=== PATIENT | male | born 1955 | race Caucasian/White ===

== ENCOUNTER → 2017-12-24 16:05 | Outpatient (CLI) | payer OTHER, SELFPAY ==
--- NOTE | 2017-12-24 | DI.MRI.S_ITS ---
PROCEDURE: MR THORACIC SPINE WO/W CON INDICATIONS: MULTIPLE SCLEROSIS/LAB/NEUROGENIC BLADDER TECHNIQUE: Noncontrast sagittal T1 spin echo and T2 fast spin echo, sagittal STIR, axial T1 and T2 fast spin echo through the thoracic spine. After the administration of contrast, axial and sagittal T1 spin echo with fat saturation through the thoracic spine. COMPARISON: [facility], CT, ABDOMEN/PELVIS WITH CONTRAST, 12/14/2014, 8:12. FINDINGS: Image quality: Excellent. Alignment and curvature: There is normal bony alignment. Marrow: Marrow is of normal overall signal. No acute vertebral body compression fractures. Mild anterior wedge deformity of L1 is noted, unchanged from . Spinal cord: Visualized spinal cord is of normal signal and size, without abnormal enhancement. Paraspinous soft tissues: No paravertebral masses or abnormal enhancement. Miscellaneous: There is mild degenerative disc disease with mild disc desiccation and mild posterior disc bulge at T7-T8, T8-T9, T9-T10, T10-T11, T11-T12 and L1-L2. Mild central canal stenosis at T11-T12. No foramina appear widely patent at all scanned levels. There is a large cyst in the left kidney measuring 5.8 cm. IMPRESSION: 1. No MS lesions in the thoracic cord. 2. Mild degenerative disc disease causing mild central canal stenosis at T11-T12. 3. Mild anterior wedge deformity of L1 unchanged from 12/14/2014. 4. Large left renal cyst. Dictated by: Branden Burton M.D. on 12/28/2017 at 7:55 Transcribed by: GUILLERMO on 12/28/2017 at 7:56 Approved by: Branden Burton M.D. on 12/28/2017 at 12:52
--- NOTE | 2017-12-24 | DI.RAD.S_ITS ---
PROCEDURE: XR ABDOMEN 1V INDICATIONS: MULTIPLE SCLEROSIS/LAB/NEUROGENIC BLADDER TECHNIQUE: One view of the abdomen acquired. COMPARISON: [facility], CT, ABDOMEN/PELVIS WITH CONTRAST, 12/14/2014, 8:12. FINDINGS: Surgical changes and devices: None. Bowel: Bowel gas pattern is abnormal with generalized colonic obstipation. Soft tissues: No suspicious abdominal calcifications. Visualized solid organ contours appear normal in size. Bones: No suspicious bony lesions. IMPRESSION: Generalized colonic obstipation, no acute disease. Dictated by: Ji Sarabia M.D. on 12/24/2017 at 18:31 Approved by: Ji Sarabia M.D. on 12/24/2017 at 18:31
--- NOTE | 2017-12-24 | DI.MRI.S_ITS ---
PROCEDURE: MR HEAD/BRAIN WO/W CON INDICATIONS: MULTIPLE SCLEROSIS/LAB/NEUROGENIC BLADDER TECHNIQUE: Noncontrast axial T1 spin echo, axial T2 fast spin echo, sagittal and axial FLAIR, coronal T2 fast spin echo, axial gradient echo, axial diffusion and ADC through the brain. After the administration of contrast, axial and coronal T1 spin echo with fat saturation through the brain. COMPARISON: [facility], RG, MRI BRAIN (IAC), 01/31/2004, 11:07. [facility], MR, BRAIN W&WO CONTRAST, 08/16/2015, 12:58. FINDINGS: Image quality: Excellent. CSF spaces: Basal cisterns are patent. No extra-axial fluid collections. Ventricles are normal in size and shape. Brain: There are multiple white matter lesions bilaterally in the periventricular white matter, unchanged. On contrast enhanced images, there is no enhancing lesions identified. Compared to the last exam dated 08/16/2015, there is no significant change. No mass effect or midline shift. No intracranial bleeds or masses. No abnormal intracranial enhancement. There is mild cerebral volume loss for age. The brainstem appears normal. Diffusion-weighted images demonstrate no acute ischemic insults. No chronic ischemic insults. Normal intravascular flow voids are present. Skull and face: Calvarial marrow is normal in signal. Orbits appear normal. Sinuses: There is an air-fluid level in the right maxillary sinus. Mastoids appear clear. IMPRESSION: 1. Stable white matter lesions. 2. Mild cerebral volume loss. 3. Right maxillary sinusitis. Dictated by: Branden Burton M.D. on 12/28/2017 at 7:44 Transcribed by: GUILLERMO on 12/28/2017 at 7:46 Approved by: Branden Burton M.D. on 12/28/2017 at 12:45
--- NOTE | 2017-12-24 | DI.MRI.S_ITS ---
PROCEDURE: MR CERVICAL SPINE WO/W CON INDICATIONS: MULTIPLE SCLEROSIS/LAB/NEUROGENIC BLADDER TECHNIQUE: Noncontrast sagittal T1 spin echo and T2 fast spin echo, sagittal STIR, sagittal PD fast spin echo, foraminal oblique sagittal T2 fast spin echo, axial gradient echo or T2 fast spin echo through the cervical spine. After the administration of contrast, sagittal and axial T1 spin echo with fat saturation through the cervical spine. COMPARISON: [facility], MR, MR HEAD/BRAIN WO/W CON, 12/24/2017, 16:35. [facility], MR, C-SPINE W&WO CONTRAST, 08/16/2015, 13:20. FINDINGS: Image quality: Excellent. Alignment and curvature: There is normal bony alignment. Marrow: There is an intraosseous hemangioma in T2 vertebral body. Marrow signal is otherwise normal. Spinal cord: Visualized spinal cord is normal in size. There are multiple foci of T2 hyperintensity in the cervical cord at level of craniocervical junction, C2, C3 and C5, consistent with white matter plaques. Compared to the last exam on 08/16/2015, white matter lesions are stable in size and number. No suspicious intramedullary enhancement. No cerebellar tonsillar herniation. Paraspinous soft tissues: No paravertebral masses or suspicious enhancement. C2-C3: Preserved disc height and mild disc desiccation. There is minimal posterior disc bulge. Uncovertebral hypertrophy. Mild bilateral facet arthropathy. The central canal is patent. Mild bilateral foraminal stenosis, unchanged. C3-C4: Minimal loss disc height and mild disc desiccation. There is mild posterior disc bulge. Uncovertebral hypertrophy. Mild bilateral facet arthropathy. The central canal is patent. No bilateral foraminal stenosis. C4-C5: Preserved disc height and mild disc desiccation. There is mild posterior disc bulge. Mild bilateral facet arthropathy. No central canal or foraminal stenosis. C5-C6: Mild to moderate loss of disc height and disc desiccation. There is posterior and right posterior lateral disc bulge. Severe right and moderate left facet arthropathy. Mild to moderate central canal stenosis. Mild to moderate lateral foraminal stenosis. No significant change from last exam. C6-C7: Mild to moderate loss of disc height and disc desiccation. There is broad posterior disc bulge and disc osteophyte complex. Mild uncovertebral hypertrophy. Mild central canal stenosis. Moderate right and mild left foraminal stenosis. No significant change from last exam. C7-T1: Normal appearance. IMPRESSION: 1. Stable white matter lesions in the cervical cord. 2. Multilevel degenerative disc disease and facet arthropathy as described. 3. Mild to moderate central canal stenosis at C5-C6. 4. Multilevel foraminal stenoses as described. Dictated by: Branden Burton M.D. on 12/28/2017 at 7:46 Approved by: Branden Burton M.D. on 12/28/2017 at 12:58
[2017-12-24 18:54] LABS: Vitamin D 25 Hydroxy (D3) 65.3 ng/mL (30.0-100.0)
== END ==
PROVIDERS: Family Provider Family Medicine; PCP Family Medicine; Visit Provider Psychiatry & Neurology Neurology
DX: G35 Multiple sclerosis (principal); N31.9 Neuromuscular dysfunction of bladder, unspecified; J32.0 Chronic maxillary sinusitis; M51.34 Other intervertebral disc degeneration, thoracic region; M48.04 Spinal stenosis, thoracic region; N28.1 Cyst of kidney, acquired; M50.30 Other cervical disc degeneration, unspecified cervical region; M47.812 Spondylosis without myelopathy or radiculopathy, cervical region; M48.02 Spinal stenosis, cervical region; M99.71 Connective tissue and disc stenosis of intervertebral foramina of cervical region; K59.00 Constipation, unspecified
CPT/HCPCS: 36415; 70553; 72156; 72157; 74018; 82306; A9579

== ENCOUNTER → 2020-10-15 10:13 | Outpatient (CLI) | payer MEDICARE, SELFPAY ==
[2020-10-15 10:32] LABS: Hematocrit 46.3 % (41-53); Hemoglobin 15.7 g/dL (13.5-17.5); Mean Corpuscular HGB Conc 33.9 % (30-36); Mean Corpuscular Hemoglobin 30.3 PG (26-34); Mean Corpuscular Volume 89.3 fL (80-100); Platelet Count 189 X10^3/uL (150-400); Red Blood Cell Count 5.19 X10^6/uL (4.5-5.9); Red Cell Distribution Width 13.4 % (11.6-14.8)
[2020-10-15 11:00] LABS: Alanine Aminotransferase 16 IU/L (<50); Albumin 4.2 g/dL (3.5-5.0); Albumin Globulin Ratio 1.4 (1.0-2.8); Alkaline Phosphatase 122 U/L (38-126); Aspartate Aminotransferase 21 IU/L (17-59); BUN Creatinine Ratio 33.3 (6-22); Bilirubin Total 0.5 mg/dL (0.2-1.3); Blood Urea Nitrogen 20 mg/dL (9-20); Carbon Dioxide 34 mmol/L (22-32); Chloride 105 mmol/L (98-107); Cholesterol 177 mg/dL (140-199); Estimated Glomerular Filt Rate > 60.0 mL/min (>60); Globulin 3.1 g/dL (1.7-4.1); Glucose 107 mg/dL (80-110); HDL Cholesterol 55 mg/dL (40-60); HEMOLYSIS < 15 (0-50); LDL Cholesterol Calculated 109 mg/dL (<100); Potassium 4.1 mmol/L (3.4-5.1); Sodium 142 mmol/L (137-145); Total Protein 7.3 g/dL (6.3-8.2); Triglycerides 63 mg/dL (35-150)
[2020-10-15 11:27] LABS: Prostate Specific Antigen Scrn 0.919 ng/mL (0.1-4.0)
== END ==
PROVIDERS: Family Provider Family Medicine; PCP Nurse Practitioner; Referring Provider Nurse Practitioner; Visit Provider Nurse Practitioner
DX: Z00.00 Encounter for general adult medical examination without abnormal findings (principal); Z12.5 Encounter for screening for malignant neoplasm of prostate
CPT/HCPCS: 36415; 80053; 80061; 84443; 85027; G0103

== ENCOUNTER → 2020-11-05 15:49 | Outpatient (CLI) | payer MEDICARE, SELFPAY ==
--- NOTE | 2020-11-05 15:51 | DI.US.S_ITS ---
PROCEDURE: US PERIPH VENOUS LOW EXTREM LT INDICATIONS: Lt LE discoloration and delayed capillary refill TECHNIQUE: Real-time imaging, as well as color and pulse Doppler interrogation, were performed of the lower extremity deep veins from the inguinal ligament to the popliteal fossa. COMPARISON: None. FINDINGS: The common femoral, femoral and popliteal veins are normally compressible, and free of intraluminal thrombus. Color and pulse Doppler demonstrate normal phasic intraluminal flow. There is normal augmentation response to distal compression maneuver. IMPRESSION: Negative for deep venous thrombosis. Dictated by: Sean Bryan M.D. on 11/05/2020 at 15:24 Approved by: Sean Bryan M.D. on 11/05/2020 at 15:24
== END ==
PROVIDERS: Family Provider Family Medicine; PCP Nurse Practitioner; Referring Provider Nurse Practitioner; Visit Provider Nurse Practitioner
DX: L81.9 Disorder of pigmentation, unspecified (principal)
CPT/HCPCS: 93971

== ENCOUNTER → 2020-11-15 09:49 | Outpatient (CLI) | payer MEDICARE, SELFPAY ==
[2020-11-15 11:11] LABS: COVID19 -Nasal RAPID Negative (Negative)
== END ==
PROVIDERS: Family Provider Family Medicine; PCP Nurse Practitioner; Visit Provider Surgery
DX: Z20.822 Contact with and (suspected) exposure to COVID-19 (principal)
CPT/HCPCS: 87635; C9803

== ENCOUNTER 2020-11-18 08:58 | Day surgery (SDC) | payer MEDICARE, SELFPAY ==
[2020-11-18] MEDS: FLEETS ENEMA 1 EACH PR (09:20)
[2020-11-18] MEDS: LACTATED RINGERS 1,000 ML 200 ML IV (09:40)
[2020-11-18 09:41] VITALS: BP 137/86; PULSE 105; RESP 16; TEMP 36.8; O2SAT 100; BMI 18.8
--- NOTE | 2020-11-18 10:02 | PM.HP.1 ---
History of Present Illness History of Present Illness Date Patient Seen: 11/18/20 Time Patient Seen: 10:03 Chief complaint: SCREENING COLONOSCOPY Narrative: The patient presents for colorectal sreening. He had previously normal colonoscopy greater than 10 years ago. He has a family history of colon cancer of his mother. On further history denies any recent gastrointestinal symptoms. No nausea, vomiting, abdominal pain, loss of appetite, unexplained weight loss, change in bowel habits, diarrhea, constipation, melena, hematochezia, or bright red blood per rectum. Patient History Medical History Forehead laceration Hyperlipidemia LDL goal <100 Multiple sclerosis (11/11/11) Surgical History Status post hernia repair Family & Social History Family History Mother Dementia Alzheimer's disease Social History: household members spouse Tobacco & Substance use: Smoking Status Never smoker alcohol intake never Substance Use Type does not use Meds Home Medications and Allergies Home Medications Medication Instructions Recorded Confirmed Type [MANUAL WHEELCHAIR] #0 10/15/16 02/15/20 Rx Disabled Parking Permit ea #1 01/04/17 02/15/20 Rx multivitamin [Multiple Vitamins] 1 tab PO QDAY #0 11/23/17 11/18/20 History calcium carb-vit D3-minerals 600 1 tab PO BID #1 tab 10/10/20 11/18/20 Rx mg calcium-400 unit tablet ascorbic acid (vitamin C) 1,000 mg 1 g PO DAILY tab 11/05/20 11/18/20 History tablet butenafine 1 % topical cream 1 applic TOPICAL BID #30 g 11/05/20 11/18/20 Rx cholecalciferol (vitamin D3) 50 50 mcg PO DAILY 11/05/20 11/18/20 History mcg (2,000 unit) capsule Allergies Allergy/AdvReac Type Severity Reaction Status Date / Time Sulfa (Sulfonamide Allergy Intermediate HIVES Verified 11/18/20 09:34 Antibiotics) [SULFA (SULFONAMIDE ANTIBIOTICS)] peanut [PEANUT] AdvReac Mild NAUSEA Verified 11/18/20 09:34 Review of Systems Review of Systems ROS: Yes All systems reviewed with the patient and are negative except as otherwise documented Exam Vital Signs (past 8 hours): - 11/18/20 09:41 Temperature 98.2 F Pulse Rate 105 H Respiratory Rate 16 Blood Pressure 137/86 Pulse Oximetry 100 Oxygen Delivery Method Room Air Narrative Exam Narrative: GENERAL-well developed adult male, no acute distress HEENT-no scleral icterus, hearing intact NECK-no JVD, trachea midline CVS- regular rate, no peripheral edema RESP-unlabored respiratory effort, no audible wheezing GI-soft, nontender nondistended MSK-no cyanosis or clubbing, extremities without deformity SKIN-warm, dry NEURO-alert and oriented, no focal deficits PYSCH-Appropriate mood and affect Assessment & Plan Assessment & Plan narrative: The patient requires colorectal screening and colonoscopy is recommended. Technical details were discussed. Risks, benefits, alternatives explained. Risks including but not limited to myocardial infarction, aspiration, bleeding, pain, missed lesion, incomplete examination, need for further radiographic studies, colonic perforation, and need for major abdominal surgery were discussed. All questions were answered to their satisfaction, and they are in agreement with this plan.
[2020-11-18] MEDS: fentaNYL 250 MCG/5 ML INJ IV (10:11)
[2020-11-18] MEDS: MIDAZOLAM 5 MG/5 ML VIAL IV (10:12)
--- NOTE | 2020-11-18 10:40 | PM.OP.ENDO ---
Operative Date/Time/Diagnoses Date of procedure: 11/18/20 Time of procedure: 10:40 Pre-op diagnosis: family history of colon cancer Post-op diagnosis: same Procedure & Clinicians Study performed: Colonoscopy Same procedure as scheduled: Yes Indications: Family history of colon cancer Surgeon: Alex Dexter Procedure Notes Procedure in detail: Medications: Conscious sedation using 3mg IV midazolam and 100mcg IV of fentanyl The history and physical was performed/updated and the patient is ASA class is 3. The procedure was discussed in detail with the patient. Potential risks complications including infection, bleeding, missed diagnosis, perforation, need for surgery, and were explained. Their questions were answered and informed consent was obtained. Patient was brought to the procedure room and placed standard monitoring equipment. The patient's vital signs were monitored continuously throughout the entire procedure. Prior to starting time-out was performed. The patient was placed in the left lateral recumbent position. Procedural sedation was administered. Examination began with a thorough inspection of the perianal area there was no evidence of fissures, fistulae, external hemorrhoids or cutaneous malignancy. The colonoscopy scope was then placed into the anal canal and was advanced to the cecum, which was identified by the ileocecal valve, the appendiceal orifice and the confluence of the taenia. The scope was then slowly withdrawn examining colon thoroughly in all directions, irrigating it of any residual stool. No masses or polyps Sigmoid diverticulosis The patient tolerated the procedure well. They will be discharged once criteria are met. The prep was of good/excellent quality. The withdrawl time was 7 minutes. The sedation time was 22 minutes. Specimen(s): none sent Complications: none Impression: Normal colonoscopy Post-procedure Recommendations: Colonscopy in 5 years Disposition: same day surgery
[2020-11-18 10:43] VITALS: BP 134/87; PULSE 80; RESP 12; TEMP 36.8; O2SAT 91
[2020-11-18 10:47] VITALS: BP 143/90; PULSE 75; RESP 12; TEMP 36.6; O2SAT 100
[2020-11-18 11:18] VITALS: BP 136/89; PULSE 77; RESP 16; TEMP 36.6; O2SAT 99
--- NOTE | 2020-11-18 11:21 | SUR.PHASEII ---
Belly soft, denied pain wanting to go home, called, assisted pt to dress, pt left in stable condition.
== END 2020-11-18 11:23 | disposition home or self-care (01) ==
PROVIDERS: Family Provider Family Medicine; PCP Nurse Practitioner; Referring Provider Surgery; Visit Provider Surgery
PROC: 0DJD8ZZ Inspection of Lower Intestinal Tract, Via Natural or Artificial Opening Endoscopic (ICD-10-PCS; CPT 45378; principal; 2020-11-18 10:00)
DX: Z12.11 Encounter for screening for malignant neoplasm of colon (principal); Z80.0 Family history of malignant neoplasm of digestive organs; K57.30 Diverticulosis of large intestine without perforation or abscess without bleeding
CPT/HCPCS: G0105; 99152; J2250; J3010

== ENCOUNTER → 2020-12-03 12:39 | Outpatient (CLI) | payer MEDICARE, SELFPAY ==
[2020-12-03 13:29] LABS: Add Manual Diff / Slide Review NO; Basophils Absolute Auto 100 /uL (0-100); Basophils Percent Auto 0.9 % (0-2); Eosinophils Absolute Auto 100 /uL (0-450); Eosinophils Percent Auto 1.4 % (2-4); Hematocrit 46.3 % (41-53); Hemoglobin 15.7 g/dL (13.5-17.5); Lymphocytes Absolute Auto 1700 /uL (1100-4500); Lymphocytes Percent Auto 23.9 % (25-40); Mean Corpuscular Hemoglobin 30.2 PG (26-34); Mean Corpuscular Volume 88.7 fL (80-100); Monocytes Absolute Auto 600 /uL (0-900); Monocytes Percent Auto 7.7 % (3-14); Neutrophils Absolute Auto 4800 /uL (1500-7000); Neutrophils Percent Auto 66.1 % (50-75); Platelet Count 221 X10^3/uL (150-400); Red Blood Cell Count 5.22 X10^6/uL (4.5-5.9); Red Cell Distribution Width 13.4 % (11.6-14.8); White Blood Cell Count 7.3 X10^3/uL (4.5-11.0)
[2020-12-03 13:43] LABS: Alanine Aminotransferase 15 IU/L (<50); Albumin 4.1 g/dL (3.5-5.0); Albumin Globulin Ratio 1.4 (1.0-2.8); Alkaline Phosphatase 106 U/L (38-126); Aspartate Aminotransferase 21 IU/L (17-59); BUN Creatinine Ratio 20.3 (6-22); Bilirubin Total 0.5 mg/dL (0.2-1.3); Blood Urea Nitrogen 12 mg/dL (9-20); Calcium 9.4 mg/dL (8.4-10.2); Carbon Dioxide 30 mmol/L (22-32); Chloride 101 mmol/L (98-107); Estimated Glomerular Filt Rate > 60.0 mL/min (>60); Globulin 2.9 g/dL (1.7-4.1); Glucose 85 mg/dL (80-110); HEMOLYSIS < 15 (0-50); Potassium 4.9 mmol/L (3.4-5.1); Sodium 137 mmol/L (137-145)
== END ==
PROVIDERS: Family Provider Family Medicine; PCP Nurse Practitioner; Referring Provider Physician Assistant; Visit Provider Physician Assistant
DX: B35.1 Tinea unguium (principal)
CPT/HCPCS: 36415; 80053; 85025

== ENCOUNTER → 2021-01-08 15:48 | Outpatient (CLI) | payer MEDICARE, SELFPAY ==
[2021-01-08 16:52] LABS: Add Manual Diff / Slide Review NO; Basophils Absolute Auto 0 /uL (0-100); Basophils Percent Auto 0.7 % (0-2); Eosinophils Absolute Auto 200 /uL (0-450); Eosinophils Percent Auto 2.2 % (2-4); Hematocrit 45.5 % (41-53); Hemoglobin 15.6 g/dL (13.5-17.5); Lymphocytes Absolute Auto 2000 /uL (1100-4500); Lymphocytes Percent Auto 28.9 % (25-40); Mean Corpuscular HGB Conc 34.3 % (30-36); Mean Corpuscular Hemoglobin 30.5 PG (26-34); Monocytes Absolute Auto 600 /uL (0-900); Monocytes Percent Auto 8.3 % (3-14); Neutrophils Absolute Auto 4100 /uL (1500-7000); Neutrophils Percent Auto 59.9 % (50-75); Platelet Count 199 X10^3/uL (150-400); Red Blood Cell Count 5.11 X10^6/uL (4.5-5.9); Red Cell Distribution Width 13.3 % (11.6-14.8); White Blood Cell Count 6.9 X10^3/uL (4.5-11.0)
[2021-01-08 17:07] LABS: Alanine Aminotransferase 17 IU/L (<50); Albumin 3.9 g/dL (3.5-5.0); Albumin Globulin Ratio 1.3 (1.0-2.8); Alkaline Phosphatase 120 U/L (38-126); Aspartate Aminotransferase 22 IU/L (17-59); BUN Creatinine Ratio 23.6 (6-22); Bilirubin Total 0.3 mg/dL (0.2-1.3); Blood Urea Nitrogen 13 mg/dL (9-20); Calcium 9.4 mg/dL (8.4-10.2); Carbon Dioxide 31 mmol/L (22-32); Chloride 102 mmol/L (98-107); Estimated Glomerular Filt Rate > 60.0 mL/min (>60); Globulin 3.1 g/dL (1.7-4.1); Glucose 86 mg/dL (80-110); HEMOLYSIS < 15 (0-50); Potassium 3.9 mmol/L (3.4-5.1); Sodium 138 mmol/L (137-145)
== END ==
PROVIDERS: Family Provider Family Medicine; PCP Nurse Practitioner; Referring Provider Physician Assistant; Visit Provider Physician Assistant
DX: B35.1 Tinea unguium (principal)
CPT/HCPCS: 36415; 80053; 85025

== ENCOUNTER → 2021-02-13 08:26 | Outpatient (CLI) | payer MEDICARE, SELFPAY ==
[2021-02-13 09:44] LABS: Add Manual Diff / Slide Review NO; Basophils Absolute Auto 0 /uL (0-100); Basophils Percent Auto 0.7 % (0-2); Eosinophils Absolute Auto 100 /uL (0-450); Eosinophils Percent Auto 1.7 % (2-4); Hematocrit 46.3 % (41-53); Hemoglobin 15.6 g/dL (13.5-17.5); Lymphocytes Absolute Auto 1500 /uL (1100-4500); Lymphocytes Percent Auto 23.8 % (25-40); Mean Corpuscular HGB Conc 33.6 % (30-36); Mean Corpuscular Hemoglobin 30.1 PG (26-34); Mean Corpuscular Volume 89.5 fL (80-100); Monocytes Absolute Auto 400 /uL (0-900); Monocytes Percent Auto 7.2 % (3-14); Neutrophils Absolute Auto 4100 /uL (1500-7000); Neutrophils Percent Auto 66.6 % (50-75); Platelet Count 213 X10^3/uL (150-400); Red Blood Cell Count 5.17 X10^6/uL (4.5-5.9); Red Cell Distribution Width 13.5 % (11.6-14.8); White Blood Cell Count 6.2 X10^3/uL (4.5-11.0)
[2021-02-13 09:52] LABS: Alanine Aminotransferase 16 IU/L (<50); Albumin Globulin Ratio 1.3 (1.0-2.8); Alkaline Phosphatase 99 U/L (38-126); Aspartate Aminotransferase 22 IU/L (17-59); BUN Creatinine Ratio 30.2 (6-22); Bilirubin Total 0.5 mg/dL (0.2-1.3); Blood Urea Nitrogen 19 mg/dL (9-20); Calcium 9.1 mg/dL (8.4-10.2); Carbon Dioxide 32 mmol/L (22-32); Chloride 103 mmol/L (98-107); Cholesterol 164 mg/dL (140-199); Estimated Glomerular Filt Rate > 60.0 mL/min (>60); Glucose 96 mg/dL (80-110); HDL Cholesterol 54 mg/dL (40-60); HEMOLYSIS < 15 (0-50); LDL Cholesterol Calculated 99 mg/dL (<100); Potassium 3.8 mmol/L (3.4-5.1); Sodium 139 mmol/L (137-145); Triglycerides 54 mg/dL (35-150)
== END ==
PROVIDERS: Family Provider Family Medicine; PCP Nurse Practitioner; Referring Provider Nurse Practitioner; Visit Provider Nurse Practitioner
DX: B35.1 Tinea unguium (principal); E78.5 Hyperlipidemia, unspecified
CPT/HCPCS: 36415; 80053; 80061; 85025

== ENCOUNTER → 2022-06-08 10:44 | Outpatient (CLI) | payer MEDICARE, SELFPAY ==
[2022-06-08 11:25] LABS: Appearance Urine UA CLEAR; Bilirubin Urine UA NEGATIVE (NEGATIVE); Color Urine UA YELLOW; Glucose Urine UA NEGATIVE (Negative); Ketones Urine UA NEGATIVE (NEGATIVE); Leukocyte Esterase Urine UA TRACE (NEGATIVE); Nitrite Urine UA POSITIVE (Negative); Occult Blood Urine UA TRACE-INTACT (Negative); Protein Urine UA NEGATIVE (Negative); Urobilinogen Urine UA 0.2 E.U./dL (0.2)
[2022-06-08 11:56] LABS: Bacteria Urine Many (>30); Culture Indicated Urine Specimen Cultured; RBC Urine None Seen (0-5/HPF); WBC Urine 1-5/HPF (0-5/HPF)
[2022-06-08 13:23] LABS: Prostate Specific Antigen Scrn 0.875 ng/mL (0.1-4.0)
== END ==
PROVIDERS: Family Provider Family Medicine; PCP Nurse Practitioner; Referring Provider Nurse Practitioner; Visit Provider Nurse Practitioner
DX: Z12.5 Encounter for screening for malignant neoplasm of prostate (principal); N31.9 Neuromuscular dysfunction of bladder, unspecified; N39.0 Urinary tract infection, site not specified
CPT/HCPCS: 36415; 81001; 87077; 87086; 87186; G0103

== ENCOUNTER → 2022-07-10 12:38 | Outpatient (CLI) | payer MEDICARE, SELFPAY ==
--- NOTE | 2022-07-10 12:39 | DI.US.S_ITS ---
PROCEDURE: US ABD AORTA ANEURYSM SCREEN INDICATIONS: Preventative purposes TECHNIQUE: Real time scanning was performed of the aorta and iliac arteries, with image documentation. COMPARISON: None. FINDINGS: Aorta: Proximal aortic diameter measures 2.6 cm. Mid-aorta measures 1.9 cm. Distal aortic diameter is 1.9 cm. Iliac arteries: Right common iliac artery measures 1.2 cm. Left common iliac artery measures 1.1 cm. IMPRESSION: No abdominal aortic aneurysm. Approved by: Alexi Koo M.D. on 07/10/2022 at 14:50
== END ==
PROVIDERS: Family Provider Family Medicine; PCP Nurse Practitioner; Referring Provider Nurse Practitioner; Visit Provider Nurse Practitioner
DX: I71.40 Abdominal aortic aneurysm, without rupture, unspecified (principal)
CPT/HCPCS: 76706

== ENCOUNTER → 2022-08-24 17:11 | Outpatient (CLI) | payer MEDICARE, SELFPAY ==
--- NOTE | 2022-08-24 17:15 | DI.US.S_ITS ---
PROCEDURE: US RENAL COMPLETE INDICATIONS: NEUROGENIC BLADDER TECHNIQUE: Real-time scanning was performed of the kidneys and bladder, with image documentation. COMPARISON: [facility], CT, ABDOMEN/PELVIS WITH CONTRAST, 12/14/2014, 8:12. [facility], US, RENAL COMPLETE, 04/10/2010, 8:38. [facility], US, RENAL COMPLETE, 10/09/2011, 16:26. [facility], US, RENAL COMPLETE, 11/05/2017, 13:27. FINDINGS: Kidneys: Right kidney measures 9.7 cm long; left kidney measures 7.8 cm long. Right renal cortical thickness is 0.6 cm; left renal cortical thickness is 0.7 cm. Renal cortical echotexture is normal. No hydronephrosis or nephrolithiasis. No suspicious solid mass lesions. There is a prominent left renal cyst seen that measures up to 6.4 cm. Bladder: Pre-void bladder volume is 330 mL. There is no definite postvoid residual. Pre-void images demonstrate no intraluminal masses or stones. On pre-void images, both ureteral jets are noted with color Doppler interrogation. (Of note, ureteral jets may not be detectable in up to 25% of cases due to insufficient differences in specific gravity between ureteral and bladder urine). Miscellaneous: No free pelvic fluid. IMPRESSION: No definite postvoid residual. Large simple appearing left renal cyst seen measuring up to 6.4 cm. Small kidney size. No hydronephrosis. Dictated by: Sean Bryan M.D. on 08/25/2022 at 10:50 Approved by: Sean Bryan M.D. on 08/25/2022 at 10:53
== END ==
PROVIDERS: Family Provider Family Medicine; PCP Nurse Practitioner; Referring Provider Urology; Visit Provider Urology
DX: N31.9 Neuromuscular dysfunction of bladder, unspecified (principal); R33.9 Retention of urine, unspecified; N28.1 Cyst of kidney, acquired; N27.9 Small kidney, unspecified; Z87.440 Personal history of urinary (tract) infections
CPT/HCPCS: 76770

== ENCOUNTER 2023-02-09 16:26 | Emergency (ER) | payer MEDICARE, SELFPAY ==
[2023-02-09 16:30] VITALS: BP 124/74; PULSE 90; RESP 16; TEMP 36.9; O2SAT 99; BMI 18.1
--- NOTE | 2023-02-09 16:40 | DI.US.S_ITS ---
PROCEDURE: US SCROTUM INDICATIONS: Rt testicle swelling TECHNIQUE: Real-time scanning was performed of the scrotum and testicles, with image documentation. Color and pulse Doppler interrogation was performed of both testicles. COMPARISON: None. FINDINGS: Right: Testicle is normal in size at 3.0 x 3.1 x 2.8 cm, and homogenous in echotexture. Epididymal head cyst measuring up to 12 mm. There is a septated hydrocele. Overlying scrotal skin is normal in thickness. Prominent rete testes. Left: Testicle is normal in size at 3.5 x 2.6 x 2.8 cm, and homogeneous in echotexture. Epididymal head cysts measuring 22 mm and 19 mm. No hydrocele or varicoceles. Overlying scrotal skin is normal in thickness. Prominent rete testes. Doppler: Color and pulse Doppler demonstrate normal and symmetric arterial flow in both testicles. IMPRESSION: 1. Septated right hydrocele. No significant asymmetric flow is seen to the epididymi to suggest epididymitis. 2. Bilateral epididymal head cysts. 3. Bilateral prominent rete testes. Dictated by: Florin Barahona M.D. on 02/09/2023 at 18:18 Approved by: Florin Barahona M.D. on 02/09/2023 at 18:21
[2023-02-09 18:06] VITALS: PULSE 86; RESP 18; O2SAT 98
[2023-02-09 18:22] LABS: Appearance Urine UA CLEAR; Bilirubin Urine UA NEGATIVE (NEGATIVE); Color Urine UA YELLOW; Glucose Urine UA NEGATIVE (Negative); Ketones Urine UA NEGATIVE (NEGATIVE); Leukocyte Esterase Urine UA 1+ (NEGATIVE); Nitrite Urine UA NEGATIVE (Negative); Occult Blood Urine UA NEGATIVE (Negative); Protein Urine UA NEGATIVE (Negative); Specific Gravity Urine UA 1.015 (1.000-1.035); Urobilinogen Urine UA 0.2 E.U./dL (0.2)
[2023-02-09 18:39] LABS: Bacteria Urine Many (>30); Culture Indicated Urine Specimen Cultured; RBC Urine 0-1/HPF (0-5/HPF); Squamous Epithelial Cell Urine 1-5 /HPF (0-5/HPF); WBC Urine 5-10/HPF (0-5/HPF)
--- NOTE | 2023-02-09 18:46 | ED_ITS ---
HPI - General Adult General Chief complaint: Urogenital-Male Stated complaint: rt testicle swollen Time Seen by Provider: 02/09/23 16:40 Source: patient Mode of arrival: Wheelchair Limitations: no limitations History of Present Illness HPI narrative: 67-year-old male. Does have a history of MS. Is wheelchair dependent. Yesterday started to notice a swelling in his right hemiscrotum and it is somewhat worse today. He does self-catheterize. This is not new for him. He is no abdominal tenderness. No skin rashes. No fevers. No known trauma. Related Data Home Medications Medication Instructions Recorded Confirmed multivitamin (Multiple Vitamins 1 tab PO QDAY ##0 11/23/17 09/02/22 tablet) ascorbic acid (vitamin C) 1,000 mg 1 g PO DAILY 11/05/20 09/02/22 tablet cholecalciferol (vitamin D3) 25 25 mcg PO DAILY 06/08/22 09/02/22 mcg (1,000 unit) capsule econazole 1 % topical cream 1 applic topical DAILY 06/08/22 09/02/22 vit 1 cap PO BID 06/08/22 09/02/22 C,E,zinc,Im-pxbvv-6-lutein-zeaxanthin 250 mg-2.5 mg-0.5 mg capsule Previous Rx's Medication Instructions Recorded [MANUAL WHEELCHAIR] ##0 10/15/16 calcium carb-vit D3-minerals 600 1 tab PO BID #1 tab 10/10/20 mg calcium-400 unit tablet Wheelchair wheels #1 ea 12/27/20 Disabled Parking Permit #1 ea 05/22/22 Allergies Allergy/AdvReac Type Severity Reaction Status Date / Time Sulfa (Sulfonamide Allergy Intermediate HIVES Verified 09/02/22 08:24 Antibiotics) [SULFA (SULFONAMIDE ANTIBIOTICS)] peanut [PEANUT] AdvReac Mild NAUSEA Verified 09/02/22 08:24 Review of Systems Constitutional Constitutional: Reports system reviewed and no additional complaints, except as documented Genitourinary Genitourinary: Reports system reviewed and no additional complaints, except as documented Musculoskeletal Musculoskeletal: Reports system reviewed and no additional complaints, except as documented Integumentary/Breasts Skin/Breast: Reports system reviewed and no additional complaints, except as documented Patient History Medical History Forehead laceration History of urinary tract infection Hyperlipidemia LDL goal <100 Male circumcision Multiple sclerosis (11/11/11) Renal cyst Urinary retention Wheelchair dependent Surgical History Status post hernia repair Family History Mother Dementia Alzheimer's disease Hearing impairment Father Hypertension Hearing impairment Social History marital status: number of children: 6 household members: spouse Smoking Status: Never smoker alcohol intake: never caffeine: No Type(s) of exercise: none Smoking Status: Never smoker Substance Use Type: does not use Exam Initial Vital Signs Initial Vital Signs: Vital Signs Temperature 98.5 F 02/09/23 16:30 Pulse Rate 90 02/09/23 16:30 Respiratory Rate 16 02/09/23 16:30 Blood Pressure 124/74 02/09/23 16:30 Pulse Oximetry 99 02/09/23 16:30 Oxygen Delivery Method Room Air 02/09/23 16:30 Const General: cooperative and comfortable GI Inspection: normal to inspection and non-distended Other: Bilateral testes are unremarkable. Penis is unremarkable. Glands is unremarkable. Scrotum is unremarkable. Does have a swelling that is tender to palpation in the right hemiscrotum. Skin General: no rashes or lesions noted Course Orders Ordered: ED Orders 02/09/23 16:40 US scrotum Stat Urinalysis and Microscopic Stat Urine Culture Stat Vital Signs Vital signs: Vital Signs - 8 hr 02/09/23 16:30 02/09/23 18:06 02/09/23 18:59 Temperature 98.5 F Pulse Rate 90 86 74 Respiratory Rate 16 18 Blood Pressure 124/74 131/80 Pulse Oximetry 99 98 99 Oxygen Delivery Method Room Air Room Air Room Air Medical Decision Making Lab Data Lab results reviewed: Yes I reviewed the patient's lab results. Labs: Lab Results 02/09/23 Range/Units 16:40 Urine Color Yellow Urine Appearance Clear Urine pH 7.0 (4.5-8.0) Ur Specific Oral 1.015 (1.000-1.035) Urine Protein Negative (Negative) Urine Glucose (UA) Negative (Negative) g/dL Urine Ketones Negative (NEGATIVE) Urine Occult Blood Negative (Negative) Urine Nitrate Negative (Negative) Urine Bilirubin Negative (NEGATIVE) Urine Urobilinogen 0.2 (0.2) E.U./dL Ur Leukocyte Esterase 1+ H (NEGATIVE) Urine RBC 0-1/hpf (0-5/HPF) Urine WBC 5-10/hpf H (0-5/HPF) Ur Squamous Epith Cells 1-5 /hpf (0-5/HPF) Urine Bacteria Many (>30) H (None) Ur Culture Indicated? Specimen cultured Imaging Data Scrotal ultrasound: Radiologist's Impression: PROCEDURE:? US SCROTUM ? INDICATIONS:? Rt testicle swelling ? TECHNIQUE:? Real-time scanning was performed of the scrotum and testicles, with image documentation.? Color and pulse Doppler interrogation was performed of both testicles.? ? COMPARISON:? None. ? FINDINGS:? ? Right:? Testicle is normal in size at 3.0 x 3.1 x 2.8 cm, and homogenous in echotexture.? Epididymal head cyst measuring up to 12 mm. There is a septated hydrocele.? Overlying scrotal skin is normal in thickness.? Prominent rete testes. ? Left:? Testicle is normal in size at 3.5 x 2.6 x 2.8 cm, and homogeneous in ech otexture.? Epididymal head cysts measuring 22 mm and 19 mm. No hydrocele or varicoceles.? Overlying scrotal skin is normal in thickness.? Prominent rete testes. ? Doppler:? Color and pulse Doppler demonstrate normal and symmetric arterial flow in both testicles.? ? IMPRESSION:? 1. Septated right hydrocele.? No significant asymmetric flow is seen to the epididymi to suggest epididymitis. 2. Bilateral epididymal head cysts. 3.? Bilateral prominent rete testes.? MDM Narrative Medical decision making narrative: History and physical exam and ultrasound are consistent with a hydrocele. No indication for emergent urologic consultation. He self caths. He does have bacteria in his urine but we will wait for the urine culture before treating with any antibiotics. Advised that he contact Urology for follow-up. He was given return precautions. He expressed understanding and agreement. Discharge Plan Departure Patient Disposition: Home Clinical Impression: Hydrocele Instructions: DI for Hydrocele-Adult Activity Restrictions/Additional Instructions: I recommend that tomorrow you contact your urologist office to let him know that you do have this hydrocele. Your urinalysis today did have some bacteria in it however we will wait for the culture results before we would treat for any antibiotics. Return to the emergency department for new or worsening symptoms. Prescriptions: No Action [MANUAL WHEELCHAIR] Qty: 0 0RF multivitamin [Multiple Vitamins] 1 EACH tablet 1 tab PO QDAY Qty: 0 (DME) Wheelchair wheels See Rx Instructions .Route .MEDSUPPLY Qty: 1 0RF [place] Instructions: [place] [place] See Rx Instructions .ROUTE .MEDSUPPLY Qty: 1 0RF Rx Instructions: Valid for 5 years ascorbic acid (vitamin C) 1,000 mg tablet 1 g PO DAILY calcium carbonate-vit D3-min 600 mg calcium- 400 unit tablet 1 tab PO BID Qty: 1 0RF econazole 1 % cream 1 applic topical DAILY cholecalciferol (vitamin D3) 25 mcg (1,000 unit) capsule 25 mcg PO DAILY vit C,E,Zn,Sc-xaxyh9-jli-zeax 250-2.5-0.5 mg capsule 1 cap PO BID Referrals: Denise Romero ARNP [Primary Care Provider] - Stand Alone Forms: Patient Portal/API
[2023-02-09 18:59] VITALS: BP 131/80; PULSE 74; O2SAT 99
== END 2023-02-09 18:59 | disposition home or self-care (01) ==
PROVIDERS: Emergency Medicine; Emergency Provider Emergency Medicine; Family Provider Family Medicine; PCP Nurse Practitioner
DX: N43.3 Hydrocele, unspecified (principal)
CPT/HCPCS: 76870; 81001; 87077; 87086; 87147; 87186; 93975; 99282; 99283

== ENCOUNTER 2023-02-16 14:37 | Emergency (ER) | payer MEDICARE, SELFPAY ==
[2023-02-16] VITALS (20 sets, daily range): BP systolic 96–120; BP diastolic 59–72; PULSE 84–153; RESP 14–24; TEMP 36.3–36.6; O2SAT 94–100; BMI 18.1
--- NOTE | 2023-02-16 15:00 | DI.RAD.S_ITS ---
PROCEDURE: XR CHEST 1V INDICATIONS: chest pain TECHNIQUE: One view of the chest was acquired. COMPARISON: [facility], , CHEST 2 VIEW, 12/11/2014, 11:21. FINDINGS: Surgical changes and devices: None. Lungs and pleura: Lungs are clear. No pleural effusions or pneumothorax. Mediastinum: Mediastinal contours appear normal. Heart size is normal. Bones and chest wall: No suspicious bony lesions. Overlying soft tissues appear unremarkable. IMPRESSION: No acute cardiopulmonary pathology. Dictated by: Jovany Pittman M.D. on 02/16/2023 at 15:45 Approved by: Jovany Pittman M.D. on 02/16/2023 at 15:45
[2023-02-16 15:18] LABS: Add Manual Diff / Slide Review NO; Basophils Absolute Auto 100 /uL (0-100); Basophils Percent Auto 0.8 % (0-2); Eosinophils Absolute Auto 100 /uL (0-450); Eosinophils Percent Auto 0.7 % (2-4); Hematocrit 46.5 % (41-53); Hemoglobin 15.9 g/dL (13.5-17.5); Lymphocytes Absolute Auto 2100 /uL (1100-4500); Lymphocytes Percent Auto 21.9 % (25-40); Mean Corpuscular HGB Conc 34.3 % (30-36); Mean Corpuscular Hemoglobin 30.6 PG (26-34); Mean Corpuscular Volume 89.2 fL (80-100); Monocytes Absolute Auto 700 /uL (0-900); Monocytes Percent Auto 7.3 % (3-14); Neutrophils Absolute Auto 6700 /uL (1500-7000); Neutrophils Percent Auto 69.3 % (50-75); Platelet Count 262 X10^3/uL (150-400); Red Blood Cell Count 5.21 X10^6/uL (4.5-5.9); Red Cell Distribution Width 12.8 % (11.6-14.8); White Blood Cell Count 9.7 X10^3/uL (4.5-11.0)
[2023-02-16 15:20] LABS: Prothrombin Time 11.4 SECONDS (10.1-12.7)
[2023-02-16 15:23] LABS: PTT Partial Thromboplastin Tim 28 SECONDS (26-36)
--- NOTE | 2023-02-16 15:23 | ED_ITS ---
HPI - Arrhythmia/Palpitations General Chief Complaint: Arrhythmia/Palpitations Stated Complaint: AFIB Time Seen by Provider: 02/16/23 15:06 Source: patient and EMS Mode of arrival: EMS History of Present Illness HPI narrative: Patient is a 67-year-old male history of multiple sclerosis presenting today with dizziness. He reports that he was in his normal state of health this morning he was able to walk and exercise in the pool. He is typically wheelchair-bound due to weakness but able to swim. Got home and did not feel quite right. EMS found him with AFib with RVR. He was given 50 mg of diltiazem and pressure dropped into the 70s. Blood pressure has come up with normal saline. He does report feeling some fluttering in his chest but is pretty asymptomatic. He denies having any symptoms yesterday. He has been doing well. Related Data Home Medications Medication Instructions Recorded Confirmed multivitamin (Multiple Vitamins 1 tab PO QDAY ##0 11/23/17 02/15/23 tablet) ascorbic acid (vitamin C) 1,000 mg 1 g PO DAILY 11/05/20 02/15/23 tablet cholecalciferol (vitamin D3) 25 25 mcg PO DAILY 06/08/22 02/15/23 mcg (1,000 unit) capsule econazole 1 % topical cream 1 applic topical DAILY 06/08/22 02/15/23 vit 1 cap PO BID 06/08/22 02/15/23 C,E,zinc,An-lpray-9-lutein-zeaxanthin 250 mg-2.5 mg-0.5 mg capsule nitrofurantoin 100 mg PO BID 02/15/23 02/15/23 monohydrate/macrocrystals 100 mg capsule (Macrobid) Previous Rx's Medication Instructions Recorded [MANUAL WHEELCHAIR] ##0 10/15/16 calcium carb-vit D3-minerals 600 1 tab PO BID #1 tab 10/10/20 mg calcium-400 unit tablet Wheelchair wheels #1 ea 12/27/20 Disabled Parking Permit #1 ea 05/22/22 Allergies Allergy/AdvReac Type Severity Reaction Status Date / Time Sulfa (Sulfonamide Allergy Intermediate HIVES Verified 02/15/23 09:52 Antibiotics) [SULFA (SULFONAMIDE ANTIBIOTICS)] peanut [PEANUT] AdvReac Mild NAUSEA Verified 02/15/23 09:52 Review of Systems Review of Systems ROS Unobtainable: All systems reviewed & are unremarkable except as noted in HPI and below Patient History Medical History Forehead laceration History of urinary tract infection Hyperlipidemia LDL goal <100 Male circumcision Multiple sclerosis (11/11/11) Renal cyst Urinary retention Wheelchair dependent Surgical History Status post hernia repair Family History Mother Dementia Alzheimer's disease Hearing impairment Father Hypertension Hearing impairment Social History marital status: number of children: 6 household members: spouse Smoking Status: Never smoker alcohol intake: never caffeine: No Type(s) of exercise: none Smoking Status: Never smoker Substance Use Type: does not use Exam Initial Vital Signs Initial Vital Signs: Vital Signs Temperature 97.8 F 02/16/23 14:49 Pulse Rate 84 02/16/23 14:49 Respiratory Rate 24 02/16/23 14:49 Blood Pressure 98/68 02/16/23 14:49 Pulse Oximetry 100 02/16/23 14:49 Oxygen Delivery Method Room Air 02/16/23 14:49 GENERAL: Alert thin well-appearing 67-year-old male HEENT: Head atraumatic,EOMI, pupils reactive, face symmetric, moist mucous membranes CARDIOVASCULAR: Irregularly irregular tachycardic no murmurs RESPIRATORY: Breath sounds equal bilaterally, no wheezes rales or rhonchi. ABDOMEN: Soft, nontender. Normoactive bowel sounds all 4 quadrants. No guarding or rebound EXTREMITIES: Normal range of motion, no clubbing or edema. Neurovascularly intact NEUROLOGICAL: Alert and oriented x4.Normal gait and speech. SKIN: Warm, dry, no laceration, no petechiae, no rashes or lesions. Procedures Cardioversion Consent Signed: Yes Stability: Stable Number of attempts (shocks): 1 Joules used: 120 Cardiac rhythm post-cardioversion: NSR Procedural Sedation Consent signed: Yes Time out performed: Yes Indication: cardioversion ASA Class: I Mallampati Airway Classification: Class I Preparation: resume writer applied, pulse oximeter, capnometry used, supplemental O2 applied, suction/airway equipment at bedside and IV secured IV Propofol dose (mg): 50 Course Orders Ordered: ED Orders 02/16/23 14:51 BNP [NT-proBNP (BNP-Adult 18+)] Stat Complete Blood Count AUTO DIFF Stat Comprehensive Metabolic Panel Stat Lipase Stat Magnesium Stat PTT Partial Thromboplastin Donovan Stat Prothrombin Time INR Stat Troponin & CK Cardiac Panel Stat 02/16/23 15:00 XR chest 1V Stat 02/16/23 16:48 EKG-12 Lead Routine 02/16/23 17:34 EKG-12 Lead Routine EKG-12 Lead Routine Discontinued Medications Apixaban (Apixaban 5 Mg Tablet) 5 mg PO NOW ONE Stop: 02/16/23 17:35 Last Admin: 02/16/23 18:14 Dose: Not Given Documented By: OW Propofol (Propofol 200 Mg/20 Ml Vial) 60 mg 1 mg/kg (60 mg) IV NOW ONE Stop: 02/16/23 16:40 Last Admin: 02/16/23 17:21 Dose: 55 mg Documented By: ROSE MARY Vital Signs Vital signs: Vital Signs - 8 hr 02/16/23 14:49 02/16/23 14:50 02/16/23 14:55 Temperature 97.8 F 97.4 F L Pulse Rate 84 88 98 H Respiratory Rate 24 20 Blood Pressure 98/68 96/62 Pulse Oximetry 100 99 99 Oxygen Delivery Method Room Air Room Air 02/16/23 15:15 02/16/23 15:30 02/16/23 15:45 Temperature Pulse Rate 85 94 H 93 H Respiratory Rate Blood Pressure Pulse Oximetry 99 99 96 Oxygen Delivery Method 02/16/23 15:47 02/16/23 15:47 02/16/23 16:00 Temperature Pulse Rate 100 H Respiratory Rate Blood Pressure 114/59 L 108/59 L Pulse Oximetry 98 Oxygen Delivery Method 02/16/23 16:00 02/16/23 16:15 02/16/23 16:30 Temperature Pulse Rate 110 H 123 H 149 H Respiratory Rate 15 Blood Pressure Pulse Oximetry 97 98 100 Oxygen Delivery Method 02/16/23 17:11 02/16/23 17:24 02/16/23 17:28 Temperature Pulse Rate 146 H 101 H 101 H Respiratory Rate 20 20 20 Blood Pressure 111/65 103/60 104/62 Pulse Oximetry 98 94 97 Oxygen Delivery Method 02/16/23 17:31 02/16/23 16:31 02/16/23 17:00 Temperature Pulse Rate 102 H 153 H 152 H Respiratory Rate 20 18 16 Blood Pressure 96/60 118/59 L 111/65 Pulse Oximetry 98 99 98 Oxygen Delivery Method Room Air 02/16/23 17:40 02/16/23 17:50 02/16/23 18:00 Temperature Pulse Rate 100 H 100 H 98 H Respiratory Rate 20 24 21 Blood Pressure 119/70 112/67 120/72 Pulse Oximetry 98 98 98 Oxygen Delivery Method Room Air Room Air Room Air 02/16/23 18:46 Temperature Pulse Rate 105 H Respiratory Rate 14 Blood Pressure Pulse Oximetry Oxygen Delivery Method MDM - Arrhythmia/Palpitations Lab Data 02/16/23 14:51 02/16/23 14:51 Labs: Lab Results 02/16/23 02/16/23 02/16/23 Range/Units 14:51 14:51 14:51 WBC 9.7 (4.5-11.0) X10^3/uL RBC 5.21 (4.5-5.9) X10^6/uL Hgb 15.9 (13.5-17.5) g/dL Hct 46.5 (41-53) % MCV 89.2 (80-100) fL MCH 30.6 (26-34) PG MCHC 34.3 (30-36) % RDW 12.8 (11.6-14.8) % Plt Count 262 (150-400) X10^3/uL Neut % (Auto) 69.3 (50-75) % Lymph % (Auto) 21.9 L (25-40) % [place] % (Auto) 7.3 (3-14) % Eos % (Auto) 0.7 L (2-4) % Baso % (Auto) 0.8 (0-2) % Neut # (Auto) 6700 (9971-7275) /uL Lymph # (Auto) 2100 (6511-3333) /uL [place] # (Auto) 700 (0-900) /uL Eos # (Auto) 100 (0-450) /uL Baso # (Auto) 100 (0-100) /uL PT 11.4 (10.1-12.7) SECONDS INR 1.0 (0.9-1.3) APTT 28 (26-36) SECONDS Sodium 137 (137-145) mmol/L Potassium 3.8 (3.4-5.1) mmol/L Chloride 100 (98-107) mmol/L Carbon Dioxide 27 (22-32) mmol/L BUN 21 H (9-20) mg/dL Creatinine 0.72 (0.66-1.25) mg/dL Estimated GFR > 60 (>60) mL/min BUN/Creatinine Ratio 29.2 H (6-22) Glucose 119 H (80-110) mg/dL Calcium 9.0 (8.4-10.2) mg/dL Magnesium 2.1 (1.6-2.3) mg/dL Total Bilirubin 0.6 (0.2-1.3) mg/dL AST 25 (17-59) IU/L ALT 21 (<50) IU/L Alkaline Phosphatase 128 H (38-126) U/L Total Creatine Kinase 73 (55-170) U/L Troponin I < 0.012 (0.01-0.034) ng/mL NT-Pro-B Natriuret Pep (<125) pg/mL Total Protein 7.4 (6.3-8.2) g/dL Albumin 4.1 (3.5-5.0) g/dL Globulin 3.3 (1.7-4.1) g/dL Albumin/Globulin Ratio 1.2 (1.0-2.8) Lipase 96 (23-300) U/L 02/16/23 Range/Units 14:51 WBC (4.5-11.0) X10^3/uL RBC (4.5-5.9) X10^6/uL Hgb (13.5-17.5) g/dL Hct (41-53) % MCV (80-100) fL MCH (26-34) PG MCHC (30-36) % RDW (11.6-14.8) % Plt Count (150-400) X10^3/uL Neut % (Auto) (50-75) % Lymph % (Auto) (25-40) % [place] % (Auto) (3-14) % Eos % (Auto) (2-4) % Baso % (Auto) (0-2) % Neut # (Auto) (0811-1240) /uL Lymph # (Auto) (8190-9914) /uL [place] # (Auto) (0-900) /uL Eos # (Auto) (0-450) /uL Baso # (Auto) (0-100) /uL PT (10.1-12.7) SECONDS INR (0.9-1.3) APTT (26-36) SECONDS Sodium (137-145) mmol/L Potassium (3.4-5.1) mmol/L Chloride (98-107) mmol/L Carbon Dioxide (22-32) mmol/L BUN (9-20) mg/dL Creatinine (0.66-1.25) mg/dL Estimated GFR (>60) mL/min BUN/Creatinine Ratio (6-22) Glucose (80-110) mg/dL Calcium (8.4-10.2) mg/dL Magnesium (1.6-2.3) mg/dL Total Bilirubin (0.2-1.3) mg/dL AST (17-59) IU/L ALT (<50) IU/L Alkaline Phosphatase (38-126) U/L Total Creatine Kinase (55-170) U/L Troponin I (0.01-0.034) ng/mL NT-Pro-B Natriuret Pep 196 H (<125) pg/mL Total Protein (6.3-8.2) g/dL Albumin (3.5-5.0) g/dL Globulin (1.7-4.1) g/dL Albumin/Globulin Ratio (1.0-2.8) Lipase (23-300) U/L Imaging Data Chest x-ray: Radiologist's Impresson: PROCEDURE:? XR CHEST 1V ? INDICATIONS:? chest pain ? TECHNIQUE:? One view of the chest was acquired.? ? COMPARISON:? [facility], , CHEST 2 VIEW, 12/11/2014, 11:21. ? FINDINGS:? ? Surgical changes and devices:? None.? ? Lungs and pleura:? Lungs are clear.? No pleural effusions or pneumothorax.? ? Mediastinum:? Mediastinal contours appear normal.? Heart size is normal.? ? Bones and chest wall:? No suspicious bony lesions.? Overlying soft tissues appear unremarkable.? ? IMPRESSION:? No acute cardiopulmonary pathology. ? ? Dictated by: Jovany Pittman M.D. on 02/16/2023 at 15:45 ? ? Approved by: Jovany Pittman M.D. on 02/16/2023 at 15: ECG Data Interpretation: EKG 1. Atrial fibrillation rate [address] changes EKG 2. AFib with RVR rate [address] changes EKG 3. Times normal sinus rhythm rate 1 0 NM interval 144 QRS [address] changes no T-wave inversions MDM Narrative Medical decision making narrative: Patient 67-year-old male history of multiple sclerosis presents today with new onset AFib with RVR. He reports not having any symptoms yesterday did well in the swimming pool today and then did not feel well and now having some fluttering in his chest. Blood work is overall reassuring. Electrolyte abnormality anemia SHYLA or elevated troponin. Chest x-ray does not any pneumonia abnormality.. Discussed with patient and risk of cardioversion. At this time it sounds as though he is fairly certain it started today which I agree. He was easily cardioverted with 1 shock at 120 joules. His heart rate and blood pressure much better controlled he is feeling better. At this time recommend outpatient follow-up Cardiology and PCP. Discuss anticoagulation risk with him. He gets around typically by wheelchair and is not fall or typically. Patient has a chads Vasc score of 1. Appropriate for aspirin only and can follow-up. ZACK<sub>2</sub>DS<sub>2</sub>-VASc Score for Atrial Fibrillation Stroke Risk from [email or web address] on 02/16/2023 All calculations should be rechecked by clinician prior to use RESULT SUMMARY: 1 points Stroke risk was 0.6% per year in >90,000 patients (the [place] Atrial Fibrillation Cohort Study) and 0.9% risk of stroke/TIA/systemic embolism. One recommendation suggests a 0 score for men or 1 score for women (no clinical risk factors) is ?low? risk and may not require anticoagulation; a 1 score for men or 2 score for women is ?low-moderate? risk and should consider antiplatelet or anticoagulation; and a score >= for men or >= for women is ?moderate-high? risk and should otherwise be an anticoagulation candidate. INPUTS: Age ?> 1 = 65-74 Sex ?> 0 = Male CHF history ?> 0 = No Hypertension history ?> 0 = No Stroke/TIA/thromboembolism history ?> 0 = No Vascular disease history (prior VA, peripheral artery disease, or aortic plaque) ?> 0 = No Diabetes history ?> 0 = No Discharge Plan Departure Patient Disposition: Home Clinical Impression: Atrial fibrillation with rapid ventricular response Instructions: DI for Atrial Fibrillation Activity Restrictions/Additional Instructions: *You have been diagnosed with atrial fibrillation *What to do: At this time you do need further testing such as an echocardiogram possibly evaluation by Cardiology. There is risk of stroke. At this time I recommend daily aspirin *Continue to take medications as directed Aspirin 81 mg daily *Follow up with your primary care provider in 2-3 days or call [phone] *Return to ER if you should have dizziness weakness chest pain palpitations or any new, worsening or concerning symptoms Prescriptions: No Action [MANUAL WHEELCHAIR] Qty: 0 0RF multivitamin [Multiple Vitamins] 1 EACH tablet 1 tab PO QDAY Qty: 0 (DME) Wheelchair wheels See Rx Instructions .Route .MEDSUPPLY Qty: 1 0RF Rx Instructions: As directed (DME) Disabled Parking Permit See Rx Instructions .ROUTE .MEDSUPPLY Qty: 1 0RF Rx Instructions: Valid for 5 years ascorbic acid (vitamin C) 1,000 mg tablet 1 g PO DAILY calcium carbonate-vit D3-min 600 mg calcium- 400 unit tablet 1 tab PO BID Qty: 1 0RF econazole 1 % cream 1 applic topical DAILY cholecalciferol (vitamin D3) 25 mcg (1,000 unit) capsule 25 mcg PO DAILY vit C,E,Zn,Mb-ccoqh8-aqu-zeax 250-2.5-0.5 mg capsule 1 cap PO BID nitrofurantoin monohyd/m-cryst [Macrobid] 100 mg capsule 100 mg PO BID Rx Instructions: must administer with a meal/food Referrals: Denise Romero ARNP [Primary Care Provider] - Stand Alone Forms: Patient Portal/API
[2023-02-16 15:26] LABS: Alanine Aminotransferase 21 IU/L (<50); Albumin 4.1 g/dL (3.5-5.0); Albumin Globulin Ratio 1.2 (1.0-2.8); Alkaline Phosphatase 128 U/L (38-126); Aspartate Aminotransferase 25 IU/L (17-59); BUN Creatinine Ratio 29.2 (6-22); Bilirubin Total 0.6 mg/dL (0.2-1.3); Blood Urea Nitrogen 21 mg/dL (9-20); Carbon Dioxide 27 mmol/L (22-32); Chloride 100 mmol/L (98-107); Creatine Kinase 73 U/L (55-170); Estimated Glomerular Filt Rate > 60 mL/min (>60); Globulin 3.3 g/dL (1.7-4.1); Glucose 119 mg/dL (80-110); HEMOLYSIS < 15 (0-50); Lipase 96 U/L (23-300); Magnesium 2.1 mg/dL (1.6-2.3); Potassium 3.8 mmol/L (3.4-5.1); Sodium 137 mmol/L (137-145); Total Protein 7.4 g/dL (6.3-8.2)
[2023-02-16 15:35] LABS: NT-proBNP (BNP-Adult 18+) 196 pg/mL (<125)
[2023-02-16 15:38] LABS: Troponin I < 0.012 ng/mL (0.01-0.034)
[2023-02-16] MEDS: propofoL 200 MG/20 ML VIAL 60 MG IV (17:21)
== END 2023-02-16 18:23 | disposition home or self-care (01) ==
PROVIDERS: Emergency Provider Emergency Medicine; Family Provider Family Medicine; PCP Nurse Practitioner
DX: I48.21 Permanent atrial fibrillation (principal); R07.9 Chest pain, unspecified
CPT/HCPCS: 71045; 80053; 82550; 83690; 83735; 83880; 84484; 85025; 85610; 85730; 92960; 93005; 99152; 99284; 99285; J2704

== ENCOUNTER → 2023-02-18 07:17 | Outpatient (CLI) | payer MEDICARE, SELFPAY ==
--- NOTE | 2023-02-18 07:18 | DI.US.S_ITS ---
PROCEDURE: US RENAL COMPLETE INDICATIONS: Follow-up renal cyst TECHNIQUE: Real-time scanning was performed of the kidneys and bladder, with image documentation. COMPARISON: [facility], , US RENAL COMPLETE, 08/24/2022, 17:30. FINDINGS: Kidneys: Kidneys are normal in size. Right kidney measures 11.8 cm long; left kidney measures 14 cm long. Right renal cortical thickness is 1.3 cm; left renal cortical thickness is 1.2 cm. Renal cortical echotexture is normal. No hydronephrosis or nephrolithiasis. No suspicious solid mass lesions. Simple left renal cyst is again noted now measuring 6.7 x 6.9 x 6.0 cm. This is not significantly changed. Bladder: Pre-void bladder volume is 66 mL. Post-void residual is 0 mL. Of note, patient has a neurogenic bladder and required a catheter to void. Pre-void images demonstrate no intraluminal masses or stones. On pre-void images, bilateral ureteral jets were not visualized with color Doppler interrogation. (Of note, ureteral jets may not be detectable in up to 25% of cases due to insufficient differences in specific gravity between ureteral and bladder urine). Miscellaneous: No free pelvic fluid. IMPRESSION: Unremarkable sonographic evaluation of the bilateral kidneys without evidence for urolithiasis or obstructive uropathy. Redemonstration of a prominent simple left renal cyst. Dictated by: Triston Armstrong M.D. on 02/18/2023 at 10:48 Approved by: Triston Armstrong M.D. on 02/18/2023 at 10:53
== END ==
PROVIDERS: Family Provider Family Medicine; PCP Nurse Practitioner; Referring Provider Urology; Visit Provider Urology
DX: N28.1 Cyst of kidney, acquired (principal)
CPT/HCPCS: 76770

== ENCOUNTER → 2023-03-03 09:20 | Outpatient (CLI) | payer MEDICARE, SELFPAY | PROVIDERS: Family Provider Family Medicine; PCP Nurse Practitioner; Referring Provider Nurse Practitioner; Visit Provider Nurse Practitioner | DX: I48.91 Unspecified atrial fibrillation (principal); E78.5 Hyperlipidemia, unspecified | CPT/HCPCS: 93246 ==

== ENCOUNTER → 2023-03-04 07:39 | Outpatient (CLI) | payer MEDICARE, SELFPAY ==
[2023-03-04 08:33] LABS: Cholesterol 169 mg/dL (140-199); HDL Cholesterol 51 mg/dL (40-60); LDL Cholesterol Calculated 106 mg/dL (<100); Triglycerides 62 mg/dL (35-150)
[2023-03-04 08:47] LABS: Free T3, Triiodothyronine Free 5.32 pg/mL (2.77-5.27); Free T4, Direct Thyroxine 1.23 ng/dL (0.78-2.19)
[2023-03-04 09:01] LABS: Thyroid Stimulating Hormone 1.83 uIU/mL (0.47-4.68)
== END ==
PROVIDERS: Family Provider Family Medicine; PCP Nurse Practitioner; Referring Provider Nurse Practitioner; Visit Provider Nurse Practitioner
DX: E78.5 Hyperlipidemia, unspecified (principal); I48.91 Unspecified atrial fibrillation
CPT/HCPCS: 36415; 80061; 84439; 84443; 84481

== ENCOUNTER → 2023-09-02 09:38 | Outpatient (CLI) | payer OTHER, SELFPAY ==
--- NOTE | 2023-09-02 09:39 | DI.US.S_ITS ---
PROCEDURE: US RENAL COMPLETE INDICATIONS: Follow-up left renal cyst TECHNIQUE: Real-time scanning was performed of the kidneys and bladder, with image documentation. COMPARISON: [facility], CT, ABDOMEN/PELVIS WITH CONTRAST, 12/14/2014, 8:12. [facility], US, US RENAL COMPLETE, 08/24/2022, 17:30. [facility], , US RENAL COMPLETE, 02/18/2023, 7:29. FINDINGS: Kidneys: Kidneys are normal in size. Right kidney measures 11.8 cm long; left kidney measures 9.2 cm long. Right renal cortical thickness is 1 cm; left renal cortical thickness is 1 cm. Renal cortical echotexture is normal. No hydronephrosis or nephrolithiasis. No suspicious solid mass lesions. There is a large simple left renal cyst seen superiorly measuring 7.3 x 7.1 x 7.1 cm (previously measuring 6.7 x 6.9 x 6 cm). There is a smaller simple left renal cyst seen inferiorly 3.6 x 3.5 x 2.8 cm. Bladder: Pre-void bladder volume is 223 mL. Post-void residual is 2 mL. Pre-void images demonstrate no intraluminal masses or stones. A mild amount of debris can be seen within the urinary bladder. On pre-void images, neither of the ureteral jets are noted with color Doppler interrogation. (Of note, ureteral jets may not be detectable in up to 25% of cases due to insufficient differences in specific gravity between ureteral and bladder urine). Miscellaneous: No free pelvic fluid. The prostate measures 3.6 x 3.4 x 2.5 cm and demonstrates internal calcification. IMPRESSION: Simple appearing left renal cysts, with the largest cyst superiorly measuring larger than on the prior examination. Dictated by: Sean Bryan M.D. on 09/02/2023 at 11:18 Approved by: Sean Bryan M.D. on 09/02/2023 at 11:22
== END ==
PROVIDERS: Family Provider Family Medicine; PCP Nurse Practitioner; Referring Provider Urology; Visit Provider Urology
DX: N28.1 Cyst of kidney, acquired (principal); N40.0 Benign prostatic hyperplasia without lower urinary tract symptoms; R33.9 Retention of urine, unspecified; G35 Multiple sclerosis; N31.9 Neuromuscular dysfunction of bladder, unspecified; Z87.440 Personal history of urinary (tract) infections; Z99.3 Dependence on wheelchair
CPT/HCPCS: 76770; 81002; 99214

== ENCOUNTER → 2023-10-28 11:33 | Outpatient (CLI) | payer MEDICARE, SELFPAY ==
[2023-10-28 15:30] LABS: Ferritin 63 ng/mL (18-464)
[2023-10-28 20:00] LABS: HEMOLYSIS < 15 (0-50); Iron 108 ug/dL (49-181)
[2023-10-28 20:12] LABS: Percent Iron Saturation 36 % (20-50); Total Iron Binding Capacity 300 ug/dL (261-462); Transferrin 240 mg/dL (206-381)
== END ==
PROVIDERS: Family Provider Family Medicine; PCP Nurse Practitioner; Referring Provider Nurse Practitioner; Visit Provider Nurse Practitioner
DX: R25.8 Other abnormal involuntary movements (principal); E83.10 Disorder of iron metabolism, unspecified
CPT/HCPCS: 36415; 82728; 83540; 83550

== ENCOUNTER → 2024-01-20 12:22 | Outpatient (CLI) | payer MEDICARE, SELFPAY ==
--- NOTE | 2024-01-20 12:23 | DI.ECHO.S_ITS ---
[facility] : : [address] : : [place] : : [id number] : : Phone: [phone] Echocardiogram Report + + :Name: ELIZABETH CARRILLO Study Date: 01/20/2024 Height: 71 in : :[facility] ReadingLocation: Weight: 130 lb: : Gender: Male BSA: 1.8 m2 : :: 1955 Age: 68 yrs : :Reason For Study: ATRIAL FIBRILLATION : :Ordering Physician: NICHOLE, : :KALLIE Fletcher Performed By: Joe Bridges : :Referring: KALLIE PEPE : + + Interpretation Summary The ejection fraction is estimated to be 55-60%. Diastolic parameters suggest probable normal left ventricular diastolic function and normal filling pressures. The right ventricle is normal in size and function. There is trace aortic regurgitation. There is mild tricuspid regurgitation. The right ventricular systolic pressure is estimated to be at least 22 mmHg based on an estimated right atrial pressure of 3 mm Hg. Procedure: A two-dimensional transthoracic echocardiogram with color flow and Doppler was performed. The study quality was technically difficult. The heart rate ranged between 59-72 bpm during the study. The patient was in normal sinus rhythm during the exam. Left Ventricle: The left ventricle is normal in size and wall thickness. The ejection fraction is estimated to be 55-60%. Diastolic parameters suggest probable normal left ventricular diastolic function and normal filling pressures. Right Ventricle: The right ventricle is normal in size and function. Atria: The left atrial size is normal. Right atrial size is normal. The interatrial septum grossly appears intact with no obvious evidence for an atrial septal defect. Mitral Valve: The mitral valve is normal. There is no mitral valve stenosis. There is trace mitral regurgitation. Aortic Valve: The aortic valve is grossly normal. There is no aortic valve stenosis. There is trace aortic regurgitation. Tricuspid Valve: The tricuspid valve is not well visualized, but is grossly normal. There is no tricuspid stenosis. There is mild tricuspid regurgitation. The right ventricular systolic pressure is estimated to be at least 22 mmHg based on an estimated right atrial pressure of 3 mm Hg. Pulmonic Valve: The pulmonic valve is not well visualized. There is no pulmonic valvular stenosis. There is no pulmonic valvular regurgitation. Great Vessels: The aortic root is normal size. The ascending aorta could not be visualized. The IVC is of normal diameter and collapses greater than 50% with a sniff. This suggests a low right atrial pressure of 3 mm Hg. Pericardium/ Pleura There is no pericardial effusion. There is no pleural effusion. MMode/2D Measurements & Calculations LVIDd: 4.1 cm LVOT diam: 2.1 cm LVIDs: 2.7 cm Ao root diam: 3.3 cm FS: 34.7 % IVSd: 0.64 cm LVPWd: 0.61 cm LV tang. diameter/BSA (cm/m^2): 2.3 LV sys. diameter/BSA (cm/m^2): 1.5 LA A2 area: 10.4 cm2 RA long axis: 3.8 cm LA A4 area: 14.0 cm2 RA area: 11.3 cm2 LA length (vol): 4.1 cm RA vol: 28.3 ml LA vol: 30.1 ml RA : 16.1 ml/m2 LA vol index: 17.2 ml/m2 IVC diam: 1.00 cm RVD1 (basal): 3.4 cm RVD2 (mid): 3.3 cm TAPSE: 2.5 cm Doppler Measurements & Calculations Ao V2 max: 87.7 cm/sec LVOT Max Marc: 73.9 cm/sec Ao V2 mean: 60.2 cm/sec LV V1 max P.2 mmHg Ao max P.1 mmHg LV V1 VTI: 16.8 cm Ao mean P.6 mmHg MELE(I,D): 3.2 cm2 Ao V2 VTI: 19.0 cm MELE(V,D): 3.0 cm2 sev ratio: 0.88 MELE indexed to BSA (cm^2/m^2): 1.8 MV E max marc: 44.5 cm/sec TR max marc: 228.7 cm/sec MV A max marc: 45.9 cm/sec TR max P.0 mmHg MV E/A: 0.97 PA V2 max: 53.7 cm/sec Med Peak E' Marc: 5.6 cm/sec PA V2 mean: 38.7 cm/sec E/E' med: 7.9 PA mean P.66 mmHg Lat Peak E' Marc: 7.3 cm/sec PA pr(Accel): 34.5 mmHg E/E' lat: 6.1 E/e' average: 7.0 MV dec time: 0.19 sec SV(LVOT): 60.6 ml Reading Physician:11:29 AM
== END ==
PROVIDERS: PCP Nurse Practitioner; Referring Provider Internal Medicine Cardiovascular Disease; Visit Provider Internal Medicine Cardiovascular Disease
DX: I07.1 Rheumatic tricuspid insufficiency (principal); I48.91 Unspecified atrial fibrillation
CPT/HCPCS: 93306

== ENCOUNTER → 2024-08-07 09:56 | Outpatient (CLI) | payer MEDICARE, SELFPAY ==
--- NOTE | 2024-08-07 09:59 | DI.US.S_ITS ---
PROCEDURE: US RENAL COMPLETE INDICATIONS: Left large renal cysts TECHNIQUE: Real-time scanning was performed of the kidneys and bladder, with image documentation. COMPARISON: [facility], , RENAL COMPLETE, 09/02/2023, 10:16. FINDINGS: Kidneys: Kidneys are normal in size. Right kidney measures 11.5 cm long; left kidney measures 8.4 cm long. Right renal cortical thickness is 1.0 cm; left renal cortical thickness is 1.1 cm. Left renal cysts are present measuring 7.5 x 7.4 x 7.5 cm compared to 7.3 x 7.1 x 7.1 cm and 4.0 x 3.6 x 3.0 cm compared to 3.6 x 3.5 x 2.8 cm. No hydronephrosis or nephrolithiasis. Bladder: Pre-void bladder volume is 104 mL. Post-void residual is 28 mL. Pre-void images demonstrate no intraluminal masses or stones. On pre-void images, neither ureteral jets are noted with color Doppler interrogation. (Of note, ureteral jets may not be detectable in up to 25% of cases due to insufficient differences in specific gravity between ureteral and bladder urine). Miscellaneous: No free pelvic fluid. IMPRESSION: Bilateral renal cysts, minimally increased in size. Dictated by: Verenice Barrios M.D. on 08/07/2024 at 16:51 Approved by: Verenice Barrios M.D. on 08/07/2024 at 16:53
== END ==
PROVIDERS: PCP Family Medicine; Referring Provider Urology; Visit Provider Urology
DX: N28.1 Cyst of kidney, acquired (principal); N31.9 Neuromuscular dysfunction of bladder, unspecified
CPT/HCPCS: 76770

== ENCOUNTER → 2024-08-30 10:16 | Outpatient (CLI) | payer MEDICARE, SELFPAY ==
[2024-08-30 10:56] LABS: Add Manual Diff / Slide Review NO; Basophils Absolute Auto 0 /uL (0-100); Basophils Percent Auto 0.5 % (0-2); Eosinophils Absolute Auto 100 /uL (0-450); Eosinophils Percent Auto 0.8 % (2-4); Hematocrit 47.1 % (41-53); Hemoglobin 15.7 g/dL (13.5-17.5); Lymphocytes Absolute Auto 1600 /uL (1100-4500); Lymphocytes Percent Auto 22.7 % (25-40); Mean Corpuscular HGB Conc 33.4 % (30-36); Mean Corpuscular Hemoglobin 30.7 PG (26-34); Mean Corpuscular Volume 91.8 fL (80-100); Monocytes Absolute Auto 500 /uL (0-900); Monocytes Percent Auto 7.3 % (3-14); Neutrophils Absolute Auto 4700 /uL (1500-7000); Neutrophils Percent Auto 68.7 % (50-75); Platelet Count 209 X10^3/uL (150-400); Red Blood Cell Count 5.13 X10^6/uL (4.5-5.9); Red Cell Distribution Width 13.1 % (11.6-14.8); White Blood Cell Count 6.9 X10^3/uL (4.5-11.0)
[2024-08-30 11:04] LABS: Alanine Aminotransferase 20 IU/L (<50); Albumin 4.2 g/dL (3.5-5.0); Albumin Globulin Ratio 1.5 (1.0-2.8); Alkaline Phosphatase 95 U/L (38-126); Aspartate Aminotransferase 24 IU/L (17-59); BUN Creatinine Ratio 33.3 (6-22); Bilirubin Total 0.7 mg/dL (0.2-1.3); Blood Urea Nitrogen 21 mg/dL (9-20); Calcium 9.3 mg/dL (8.4-10.2); Carbon Dioxide 34 mmol/L (22-32); Chloride 100 mmol/L (98-107); Cholesterol 183 mg/dL (140-199); Estimated Glomerular Filt Rate > 60 mL/min (>60); Globulin 2.8 g/dL (1.7-4.1); Glucose 90 mg/dL (80-110); HDL Cholesterol 62 mg/dL (40-60); HEMOLYSIS < 15 (0-50); LDL Cholesterol Calculated 107 mg/dL (<100); Magnesium 1.9 mg/dL (1.6-2.3); Potassium 4.3 mmol/L (3.4-5.1); Sodium 138 mmol/L (137-145); Triglycerides 69 mg/dL (35-150)
[2024-08-30 11:05] LABS: Hemoglobin A1C% w Est Avg Glu 5.3 % (4.0-6.0)
[2024-08-30 11:34] LABS: TSH w/ Reflex to FT4 1.34 uIU/mL (0.47-4.68)
== END ==
PROVIDERS: PCP Family Medicine; Referring Provider Internal Medicine Cardiovascular Disease; Visit Provider Internal Medicine Cardiovascular Disease
DX: I48.91 Unspecified atrial fibrillation (principal); Z13.1 Encounter for screening for diabetes mellitus; Z13.220 Encounter for screening for lipoid disorders
CPT/HCPCS: 36415; 80053; 80061; 83036; 83735; 84443; 85025

== ENCOUNTER → 2024-09-05 13:24 | Outpatient (CLI) | payer MEDICARE, SELFPAY | PROVIDERS: PCP Family Medicine; Visit Provider Urology | DX: N31.9 Neuromuscular dysfunction of bladder, unspecified (principal); Z87.440 Personal history of urinary (tract) infections | CPT/HCPCS: 51798; 81002; 87077; 87086; 87186; 99214 ==

== ENCOUNTER 2025-07-16 12:55 | Emergency (ER) | payer MEDICARE, SELFPAY ==
[2025-07-16 13:07] VITALS: BP 137/81; PULSE 96; RESP 18; TEMP 37.2; O2SAT 99; BMI 18.1
--- NOTE | 2025-07-16 15:20 | ED.EXTPRO ---
HPI - Extremity Problem General Chief complaint: Extremity Problem,Nontraumatic Stated complaint: Walk in sent for AFIB Time Seen by Provider: 07/16/25 15:15 Source: patient Mode of arrival: Wheelchair History of Present Illness HPI Narrative: 69 yo gentleman with history of MS, in a wheechair, history of atrial fibrillation, currently on metoprolol and aspirin Noted a purple spot on the medial aspect of the left inner thigh on Wednesday morning that seems to be expanding. No reports of pain, trauma, swelling Related Data Home Medications ?Medication ?Instructions ?Recorded ?Confirmed multivitamin (Multiple Vitamins 1 tab PO QDAY ##0 11/23/17 07/16/25 tablet) ascorbic acid (vitamin C) 1,000 mg 1 g PO DAILY 11/05/20 07/16/25 tablet cholecalciferol (vitamin D3) 25 25 mcg PO DAILY 06/08/22 07/16/25 mcg (1,000 unit) capsule vit 1 cap PO BID 06/08/22 07/16/25 C,E,zinc,Bk-fxkdo-3-lutein-zeaxanthin 250 mg-2.5 mg-0.5 mg capsule aspirin 81 mg tablet,delayed 81 mg PO DAILY 03/03/23 07/16/25 release (Adult Low Dose Aspirin) metoprolol succinate 50 mg 50 mg PO DAILY Afib 03/08/25 07/16/25 tablet,extended release 24 hr Previous Rx's ?Medication ?Instructions ?Recorded calcium 600 mg (as carbonate)-vit 1 tab PO BID #1 tab 10/10/20 D3 10 mcg (400 unit)-minerals tablet Wheelchair wheels #1 ea 12/27/20 Disabled Parking Permit #1 ea 05/22/22 Manual Wheelchair #1 ea 03/08/25 Allergies Allergy/AdvReac Type Severity Reaction Status Date / Time hazelnut AdvReac Intermediate Nausea Verified 07/16/25 13:07 Sulfa (Sulfonamide AdvReac Intermediate HIVES Verified 07/16/25 13:07 Antibiotics) (SULFA (SULFONAMIDE ANTIBIOTICS)) peanut (PEANUT) AdvReac Mild NAUSEA Verified 07/16/25 13:07 Review of Systems Review of Systems Narrative: At his baseline Patient History Medical History Self-catheterizes urinary bladder Renal cyst, left Renal cyst Wheelchair dependent History of urinary tract infection Urinary retention Male circumcision Hyperlipidemia LDL goal <100 Forehead laceration Multiple sclerosis (11/11/11) Surgical History Status post hernia repair Family History Mother Dementia Alzheimer's disease Hearing impairment Father Hypertension Hearing impairment Social History marital status: number of children: 6 household members: spouse Smoking Status: Never smoker alcohol intake: never caffeine: No Type(s) of exercise: none Smoking Status: Never smoker Exam Initial Vital Signs Initial Vital Signs: Vital Signs Temperature 98.9 F 07/16/25 13:07 Pulse Rate 96 H 07/16/25 13:07 Respiratory Rate 18 07/16/25 13:07 Blood Pressure 137/81 07/16/25 13:07 Pulse Oximetry 99 07/16/25 13:07 Oxygen Delivery Method Room Air 07/16/25 13:07 General: Frail, in a wheelchair from his multiple sclerosis, alert and appropriate HEENT: Moist mucous membranes, normal sclera with reactive pupils, Respiratory: Lungs are clear to auscultation, no wheezing no rales no rhonchi. Full and symmetrical air movement Cardiac: Regular rate and rhythm no murmurs no bruits Abdomen: Soft, nontender, no rebound or guarding, no flank pain. Resolving bruising appreciated around the sacral area Skin: Significant bruising from the sacrum midline down through the left thigh worse in the medial aspect but continuing down into the upper calf. Bruising does not appear acute Neurologic: MS, needs assistance with standing and transfers. He feels he is at his baseline Extremities: No trauma, well perfused. Patient was not aware of the extent of bruising all along the by had only noticed the medial aspect Psych: Cooperative, appropriate insight and affect Course Orders Ordered: ED Orders 07/16/25 15:39 CT abdomen pelvis w con Stat 07/16/25 16:06 Complete Blood Count AUTO DIFF Stat Comprehensive Metabolic Panel Stat 07/16/25 18:40 Type and Screen Stat Vital Signs Vital signs: Vital Signs - 8 hr 07/16/25 13:07 Temperature 98.9 F Pulse Rate 96 H Respiratory Rate 18 Blood Pressure 137/81 Pulse Oximetry 99 Oxygen Delivery Method Room Air MDM - Extremity (Nontraumatic) Lab Data 07/16/25 16:06 07/16/25 16:06 Labs: Lab Results 07/16/25 07/16/25 Range/Units 16:06 18:40 WBC 11.1 H (4.5-11.0) X10^3/uL RBC 3.70 L (4.5-5.9) X10^6/uL Hgb 11.4 L (13.5-17.5) g/dL Hct 33.2 L (41-53) % MCV 89.9 (80-100) fL MCH 30.7 (26-34) PG MCHC 34.2 (30-36) % RDW 13.5 (11.6-14.8) % Plt Count 281 (150-400) X10^3/uL Neut % (Auto) 70.4 (50-75) % Lymph % (Auto) 20.1 L (25-40) % [place] % (Auto) 7.1 (3-14) % Eos % (Auto) 1.9 L (2-4) % Baso % (Auto) 0.5 (0-2) % Neut # (Auto) 7800 H (6426-7598) /uL Lymph # (Auto) 2200 (7466-3822) /uL [place] # (Auto) 800 (0-900) /uL Eos # (Auto) 200 (0-450) /uL Baso # (Auto) 100 (0-100) /uL Sodium 137 (137-145) mmol/L Potassium 3.7 (3.4-5.1) mmol/L Chloride 101 (98-107) mmol/L Carbon Dioxide 30 (22-32) mmol/L BUN 19 (9-20) mg/dL Creatinine 0.52 L (0.66-1.25) mg/dL Estimated GFR > 60 (>60) mL/min BUN/Creatinine Ratio 36.5 H (6-22) Glucose 97 (70-99) mg/dL Calcium 8.5 (8.4-10.2) mg/dL Total Bilirubin 1.5 H (0.2-1.3) mg/dL AST 27 (17-59) IU/L ALT 17 (<50) IU/L Alkaline Phosphatase 90 (38-126) U/L Total Protein 6.9 (6.3-8.2) g/dL Albumin 3.8 (3.5-5.0) g/dL Globulin 3.1 (1.7-4.1) g/dL Albumin/Globulin Ratio 1.2 (1.0-2.8) Blood Type O Positive Antibody Screen Negative Imaging Data CT scan - abdomen/pelvis: Radiologist's Impression: PROCEDURE: CT ABDOMEN PELVIS W CON INDICATIONS: bruising L pelvis/thigh no trauma TECHNIQUE: After the administration of intravenous contrast, axial sections acquired from the lung bases to the pubic symphysis. Coronal and sagittal reformats were performed. For radiation dose reduction, the following was used: automated exposure control, adjustment of mA and/or kV according to patient size. COMPARISON: None. FINDINGS: Image quality: Diagnostic. Lower Chest: No significant findings. ABDOMEN: Liver: No solid mass. Gallbladder: No radiopaque gallstones or wall thickening. Biliary ducts: No biliary dilation. Pancreas: No ductal dilation. Spleen: Size is within normal limits. Adrenal Glands: No adrenal nodules. Kidneys and Ureters: No hydronephrosis. No solid mass. No complex renal cystic lesion which requires follow up. Simple left renal cysts. Left renal area of cortical thinning/scarring. Stomach and Bowel: Normal colonic caliber, without significant wall thickening. Large stool burden. Peritoneum: No abnormal intraperitoneal fluid. No free air. Ventral Wall: No significant ventral hernia. Abdominal Nodes: No retroperitoneal or mesenteric adenopathy by size criteria. Vessels: Aorta and inferior vena cava are normal in size. Atherosclerotic vascular calcifications. PELVIS: Pelvic Organs: Unremarkable. Bladder: No bladder wall thickening, accounting for underdistention. Pelvic Nodes: No enlarged lymph nodes. Miscellaneous: Left thigh subcutaneous stranding with likely intramuscular hematoma in the posterior upper thigh musculature (2/135) and within the gluteus musculature lateral to the left iliac bone (2/83). Bones: No aggressive osseous abnormality. Multilevel degenerative changes of the spine. IMPRESSION: 1. Subcutaneous stranding and likely intramuscular hematoma in the posterior upper left thigh musculature as well as in the gluteus musculature lateral to the left iliac bone. Recommend clinical correlation and follow-up. 2. No acute findings within the abdomen or pelvis. 3. Large stool burden, correlate for constipation. Dictated by: Power Deleon M.D. on 07/16/2025 at 16:44 MDM Narrative Medical decision making narrative: CC: Bruising along the entire left leg and pelvis Complicating co-morbidities: Multiple sclerosis, in a wheelchair, does have sensation but it is diminished secondary to the MS. History of paroxysmal AFib, not anticoagulated Data collected from: patient, Medical records reviewed: Primary care note from March, reviewed Differential considered: Retroperitoneal hemorrhage, upper thigh muscle tear, pelvic hematoma Exam documented above, pertinent findings include: Alert and appropriate. Initially complaining of small amount of bruising on the medial aspect of his left thigh and with more thorough exam the bruising actually is most noticeable in the left thigh but also appreciated in the lateral thigh with yellowish and green tinged bruising all the way up to the sacrum and down to the popliteal fossa. Lab Test results independently reviewed as above. Pertinent findings: CBC shows mild leukocytosis at 11.1 with out significant left shift. He has had a moderate drop in hemoglobin. Typically is in the 15.7 range is currently at 11.4 Chemistries show no acute kidney injury, normal electrolytes Liver studies were reassuring Imaging studies independently reviewed: CT scan shows Subcutaneous stranding and likely intramuscular hematoma in the posterior upper left thigh musculature as well as in the gluteus musculature lateral to the left iliac bone. Which is entirely consistent with his clinical presentation Discussion: 69-year-old gentleman with bruising over his upper thigh no pain, no appreciated trauma. CT scan shows significant hematoma intramuscular in the thigh as well as the gluteus muscle which is absolutely consistent with his clinical exam. He still is not tender. He has decreased sensation secondary to his MS. He has had a 4.3 drop in hemoglobin from 15.7-11.4. He is not having worsening fatigue, shortness of breath, palpitations or tachycardia. Reviewed findings with the patient and his including pictures from the CT scan to explain where the bruising was. At this point all of the bruising is older, does not appear to be acutely bleeding or expanding. I suspect that this happened a couple of days ago. We discussed signs and symptoms of worsening anemia reasons to return to the emergency department. At this point this should continue to heal spontaneously I did discuss expected bruising and extension of bruising as well as weeks to possibly months before all of the bruising is completely resolved. Recommended follow up with his primary physician in 1-2 weeks to recheck clinical findings as well as repeat H&H. Patient and his both expressed understanding. At this point there was no indication for advanced imaging or hospitalization and they are safely discharged Discharge Plan Departure Patient Disposition: Home Clinical Impression: Hematoma of muscle, Acute blood loss anemia Instructions: DI for Hematoma (Bruise) Activity Restrictions/Additional Instructions: Thank you for coming in today You tore part of your gluteal(buttock) muscle and part of your thigh muscle as well. There are notable amounts of blood collecting around both of these sites inside the muscle and the blood is now working its way to the surface which is how your body resolves these larger blood clots. This is not the type of blood clot that is going to be a problem with arteries or blood vessels. You are not continuing to bleed at this point. Your hemoglobin decreased from 15.7-11.4 and your hematocrit decreased from 47.1-32.2. On your physical exam you were not showing any severe side effects from having your blood counts lowered. We began to worry about needing transfusions when your hemoglobin gets into the 8 range if you are actively bleeding and 7 range if there is no active bleeding. Fortunately your blood count was quite healthy and you are able to tolerate this amount of blood loss. Please schedule an appointment with your primary care physician in 1-2 weeks to recheck the bruising itself and recheck your hemoglobin and hematocrit. If you notice that your having swelling or pain in these areas, feeling more short of breath, dizzy when standing, feel that your heart is beating too fast with minimal activity, these can be signs of new and worsening bleeding and would indicate a return to the emergency department for further evaluation Prescriptions: No Action multivitamin [Multiple Vitamins] 1 EACH tablet 1 tab PO QDAY Qty: 0 (DME) Wheelchair wheels See Rx Instructions .Route .MEDSUPPLY Qty: 1 0RF Rx Instructions: As directed (DME) Disabled Parking Permit See Rx Instructions .ROUTE .MEDSUPPLY Qty: 1 0RF Rx Instructions: Valid for 5 years ascorbic acid (vitamin C) 1,000 mg tablet 1 g PO DAILY calcium carbonate-vit D3-min 600 mg calcium- 400 unit tablet 1 tab PO BID Qty: 1 0RF cholecalciferol (vitamin D3) 25 mcg (1,000 unit) capsule 25 mcg PO DAILY vit C,E,Zn,Rw-itbdm8-bww-zeax 250-2.5-0.5 mg capsule 1 cap PO BID metoprolol succinate 50 mg tablet extended release 24 hr 50 mg PO DAILY (DME) Manual Wheelchair Adult See Rx Instructions .Route .MEDSUPPLY Qty: 1 0RF Rx Instructions: Use daily for all mobility and ADL needs aspirin [Adult Low Dose Aspirin] 81 mg tablet,delayed release (DR/EC) 81 mg PO DAILY Referrals: Joe Escobar MD [Primary Care Provider, Family Practice] Stand Alone Forms: Patient Portal/API
--- NOTE | 2025-07-16 15:39 | DI.CT.S_ITS ---
PROCEDURE: CT ABDOMEN PELVIS W CON INDICATIONS: bruising L pelvis/thigh no trauma TECHNIQUE: After the administration of intravenous contrast, axial sections acquired from the lung bases to the pubic symphysis. Coronal and sagittal reformats were performed. For radiation dose reduction, the following was used: automated exposure control, adjustment of mA and/or kV according to patient size. COMPARISON: None. FINDINGS: Image quality: Diagnostic. Lower Chest: No significant findings. ABDOMEN: Liver: No solid mass. Gallbladder: No radiopaque gallstones or wall thickening. Biliary ducts: No biliary dilation. Pancreas: No ductal dilation. Spleen: Size is within normal limits. Adrenal Glands: No adrenal nodules. Kidneys and Ureters: No hydronephrosis. No solid mass. No complex renal cystic lesion which requires follow up. Simple left renal cysts. Left renal area of cortical thinning/scarring. Stomach and Bowel: Normal colonic caliber, without significant wall thickening. Large stool burden. Peritoneum: No abnormal intraperitoneal fluid. No free air. Ventral Wall: No significant ventral hernia. Abdominal Nodes: No retroperitoneal or mesenteric adenopathy by size criteria. Vessels: Aorta and inferior vena cava are normal in size. Atherosclerotic vascular calcifications. PELVIS: Pelvic Organs: Unremarkable. Bladder: No bladder wall thickening, accounting for underdistention. Pelvic Nodes: No enlarged lymph nodes. Miscellaneous: Left thigh subcutaneous stranding with likely intramuscular hematoma in the posterior upper thigh musculature (2/135) and within the gluteus musculature lateral to the left iliac bone (2/83). Bones: No aggressive osseous abnormality. Multilevel degenerative changes of the spine. IMPRESSION: 1. Subcutaneous stranding and likely intramuscular hematoma in the posterior upper left thigh musculature as well as in the gluteus musculature lateral to the left iliac bone. Recommend clinical correlation and follow-up. 2. No acute findings within the abdomen or pelvis. 3. Large stool burden, correlate for constipation. Dictated by: Power Deleon M.D. on 07/16/2025 at 16:44 Approved by: Power Deleon M.D. on 07/16/2025 at 16:52
[2025-07-16 16:17] LABS: Add Manual Diff / Slide Review NO; Hematocrit 33.2 % (41-53); Hemoglobin 11.4 g/dL (13.5-17.5); Lymphocytes Absolute Auto 2200 /uL (1100-4500); Mean Corpuscular HGB Conc 34.2 % (30-36); Mean Corpuscular Hemoglobin 30.7 PG (26-34); Mean Corpuscular Volume 89.9 fL (80-100); Platelet Count 281 X10^3/uL (150-400)
[2025-07-16 16:32] LABS: Alanine Aminotransferase 17 IU/L (<50); Albumin 3.8 g/dL (3.5-5.0); Albumin Globulin Ratio 1.2 (1.0-2.8); Alkaline Phosphatase 90 U/L (38-126); Blood Urea Nitrogen 19 mg/dL (9-20); Calcium 8.5 mg/dL (8.4-10.2); Carbon Dioxide 30 mmol/L (22-32); Chloride 101 mmol/L (98-107); Estimated Glomerular Filt Rate > 60 mL/min (>60); Globulin 3.1 g/dL (1.7-4.1); Glucose 97 mg/dL (70-99); HEMOLYSIS < 15 (0-50); Potassium 3.7 mmol/L (3.4-5.1); Sodium 137 mmol/L (137-145); Total Protein 6.9 g/dL (6.3-8.2)
[2025-07-16 22:19] VITALS: BP 118/67; PULSE 110; RESP 18; O2SAT 96
== END 2025-07-16 22:20 | disposition home or self-care (01) ==
PROVIDERS: Emergency Provider Emergency Medicine; PCP Family Medicine
DX: M79.81 Nontraumatic hematoma of soft tissue (principal); D62 Acute posthemorrhagic anemia; G35.D Multiple sclerosis, unspecified; Z86.79 Personal history of other diseases of the circulatory system; Z99.3 Dependence on wheelchair
CPT/HCPCS: 36415; 74177; 80053; 85025; 86850; 86900; 86901; 99283; 99284; Q9967

== ENCOUNTER → 2025-07-24 14:17 | Outpatient (CLI) | payer MEDICARE, SELFPAY ==
[2025-07-24 15:06] LABS: Hematocrit 37.0 % (41-53); Hemoglobin 12.6 g/dL (13.5-17.5)
[2025-07-24 16:21] LABS: Vitamin B12 786 pg/mL (239-931)
[2025-07-24 19:58] LABS: Vitamin D 25 Hydroxy (D3) 48.5 ng/mL (30.0-100.0)
== END ==
PROVIDERS: PCP Family Medicine; Referring Provider Physician Assistant; Visit Provider Physician Assistant
DX: D62 Acute posthemorrhagic anemia (principal); E53.8 Deficiency of other specified B group vitamins; E55.9 Vitamin D deficiency, unspecified; G35.D Multiple sclerosis, unspecified
CPT/HCPCS: 36415; 82306; 82607; 85014; 85018